=== PATIENT | female | born 1960 | race Caucasian/White ===

== ENCOUNTER 2021-12-12 18:24 | Emergency (ER) | payer MEDICAID ==
[~2021-12-12] VITALS: Ht 160 cm; Wt 90.7 kg
[2021-12-12 18:25] VITALS: BP_SYST 121
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
--- NOTE | 2021-12-12 18:26 | NUR ---
DR BYERS AT BEDSIDE UPON ARRIVAL.
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
[2021-12-12] MEDS ORDERED: iohexoL 350 mgI/mL, 100 ML INFUS..BTL IV ONE (18:55)
--- NOTE | 2021-12-12 18:57 | NUR ---
DR BYERS SPEAKING WITH DR NELSON RADIOLOGIST
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
--- NOTE | 2021-12-12 19:08 | NUR ---
PATIENT TAKEN TO CT BACK IN ROOM.
--- NOTE | 2021-12-12 19:12 | NUR ---
PATIENT ON THE VENT SETTINGS AC 18/400/50%/5 PEEP.
[2021-12-12 19:49] LABS: ANION GAP 4 (5-15); BASOPHILS # (AUTO) 0.1 K/uL (0.0-0.2); BASOPHILS % (AUTO) 0.9 % (0.0-2.0); CHLORIDE 101 mmol/L (98-107); CREATININE 0.62 mg/dL (0.55-1.30); EOSINOPHILS # (AUTO) 0.7 K/uL (0.0-0.4); EOSINOPHILS % (AUTO) 7.5 % (0.0-4.0); GLUCOSE 99 mg/dL (70-99); HEMATOCRIT 31.5 % (36-48); LYMPHOCYTES # (AUTO) 1.3 K/uL (1.0-5.5); LYMPHOCYTES % (AUTO) 13.7 % (20.5-51.5); MEAN CORPUSCULAR VOLUME 84 fL (79.0-98.0); MONOCYTES # (AUTO) 0.4 K/uL (0.0-1.0); MONOCYTES % (AUTO) 4.5 % (1.7-9.3); NEUTROPHILS % (AUTO) 73.4 % (40.0-70.0); PLATELET COUNT (AUTO) 232 K/uL (130-430); POTASSIUM 3.8 mmol/L (3.5-5.1); RED BLOOD CELL COUNT(AUTO) 3.73 MIL/uL (4.2-6.2); RED CELL DISTRIBUTION WIDTH 15.1 % (9.0-15.0); UREA NITROGEN, BLOOD 24 mg/dL (8-21); WHITE BLOOD COUNT (AUTO) 9.5 K/uL (4.8-10.8)
[2021-12-12 19:57] LABS: ACETAMINOPHEN 4 ug/mL (1-30); ALBUMIN 2.6 g/dL (3.4-4.8); ASPARTATE AMINOTRANSFERASE 21 U/L (10-37); TOTAL BILIRUBIN 0.5 mg/dL (0.0-1.0)
[2021-12-12 19:59] LABS: ALCOHOL, BLOOD < 3 mg/dL (<10); GFR AFRICAN AMERICAN 127 mL/min (>90)
[2021-12-12 20:37] LABS: CALCIUM 8.6 mg/dL (8.4-11.0)
[2021-12-12 20:49] LABS: ALANINE AMINOTRANSFERASE 13 U/L (12-78)
--- NOTE | 2021-12-12 21:26 | NUR ---
Spoke to Navjot and updated him on pt condition and POC to transfer to [facility].
--- NOTE | 2021-12-12 22:07 | NUR ---
Patient to be transferred to [facility]. Is being transferred due to higher level of care. Receiving facility has accepting physician and available space. ER physician has signed transfer form. Patient or responsible alliance party has agreed to transfer and signed form. Copy of nursing notes, lab reports, EKG, Physicians Orders and X-rays to be sent with patient. Report called to ANTWAN Madera at receiving facility. Receiving physician is MD Jackson. [employer] service has been called for transfer. ETA is 15 min.
--- NOTE | 2021-12-12 22:35 | NUR ---
[employer] arrived to ED. Handoff report given to ANTWAN Mena. Questions/Concerns answered. Spoke to Navjot and was notified of ETA to [facility].
--- NOTE | 2021-12-12 22:41 | NUR ---
Spoke to Santy RN at [facility] and notified him of ETA.
[2021-12-12 22:48] VITALS: BP_SYST 100
== END 2021-12-12 22:48 | disposition short-term general hospital (02) ==
LOC: SED 18:24
DX: I62.9 Nontraumatic intracranial hemorrhage, unspecified (principal); Z79.899 Other long term (current) drug therapy
CPT/HCPCS: 99291; 86870; 70450; 80053; 82962; 85025; 86886; 86900; 86901; 84484; 36415; 93005; 71045; 76376; 94640; 94002; 99292; G0482; Q9967; G0480; G0481